=== PATIENT | female | born 1975 | race Caucasian/White ===

== ENCOUNTER 2023-01-29 04:40 | Day surgery (SDC) | payer BC ==
[2023-01-27 09:55] VITALS: BMI 21.4
[2023-01-29 08:39] VITALS: TEMP 98.6
[2023-01-29 09:11] VITALS: BP 92/53; PULSE 75; RESP 17
== END 2023-01-29 09:10 | disposition home or self-care (01) ==
LOC: JASU-ENDO 04:40
PROVIDERS: ATTEND Internal Medicine Gastroenterology
PROC: 0DJD8ZZ Inspection of Lower Intestinal Tract, Via Natural or Artificial Opening Endoscopic (ICD-10-PCS; principal; 2023-01-29 08:00)
DX: Z12.11 Encounter for screening for malignant neoplasm of colon (principal); K64.8 Other hemorrhoids
CPT/HCPCS: 81025